=== PATIENT | male | born 1940 | race Native Hawaiian/Other Pacific Islander ===

== ENCOUNTER 2021-09-08 12:40 | Outpatient (CLI) | payer OTHER, BC ==
[~2021-09-08] VITALS: Ht 165.1 cm; Wt 86.2 kg
[2021-09-08 13:12] VITALS: BP 126/85; TEMP 99.1
== END 2021-09-08 19:24 | disposition home or self-care (01) ==
LOC: INF 12:40
PROVIDERS: ATTEND Internal Medicine Endocrinology, Diabetes & Metabolism
DX: Z23 Encounter for immunization (principal); U07.1 COVID-19
CPT/HCPCS: 96365; M0244